=== PATIENT | male | born 1970 | race African-American/Black ===

== ENCOUNTER 2017-04-19 19:33 | Emergency (ER) | payer OTHER ==
[~2017-04-19] VITALS: Ht 170.2 cm; Wt 65.8 kg
[2017-04-19 19:33] VITALS: TEMP 37; Ht 170.2 cm; Wt 65.8 kg
[2017-04-19 19:50] VITALS: O2SAT 97
[2017-04-19] MEDS ORDERED: OPTIRAY 320 IV PRN (20:30)
[2017-04-19 20:35] LABS: HEMATOCRIT 44.7 % (42-52); MEAN CELL VOLUME 93.1 fL (80-100); MEAN CORPUSCULAR HEMOGLOBIN 32.1 pg (25-34); MEAN CORPUSCULAR HGB CONC 34.5 g/dl (32-36); MEAN PLATELET VOLUME 11.3 fL (7.4-10.4); PLATELET COUNT 204 K/uL (130-400); WHITE BLOOD COUNT 9.92 K/uL (4.8-10.8)
--- NOTE | 2017-04-19 20:40 | EMERGENCY ROOM VISIT NOTE ---
History Report prepared by Liz: Momo Douglas Under the Supervision of: Dr. Shaggy Felton M.D. First contact with patient: 20:05 Chief Complaint: MENTAL HEALTH EVALUATION Stated Complaint: HANGING ATTEMPT / [facility] History of Present Illness The patient is a 46 year old male who presents to the Emergency Room via ambulance for a mental health evaluation due to a sudden hanging attempt prior to arrival. The patient states that he tried to hang himself with his bed sheets , and he states that he has tried to do this before, and he came into the hospital for that as well. The patient states that he has been in [facility] for a few months, and he is by himself in his cell. The patient states that he currently has neck pain, and he has a history of asthma. The patient states that he is hearing voices leading to this attempt, and this is not the first time that this has happened. The patient might have lost consciousness for a few seconds and had seizure like activity for a few seconds until the bedsheets were removed. Source of History: patient Onset: prior to arrival Position: other (global) Quality: other (hanging attempt) Timing: other (sudden) Associated Symptoms: + neck pain Review of Systems See HPI for pertinent positives & negatives. A total of 10 systems reviewed and were otherwise negative. Past Medical & Surgical Medical Problems: (1) Asthma Social History Smoking Status: Current Every Day Smoker Housing Status: other (half-way) Occupation Status: other Current/Historical Medications Scheduled Citalopram (Citalopram Hydrobromide), 1 TAB PO DAILY Fluticasone Prop/Salmeterol (Advair Diskus 500/50 60 Dose), 1 PUFF INH BID Mirtazapine (Mirtazapine), 1 TAB PO HS Tiotropium [place] (Spiriva Handihaler), 1 CAP INH DAILY Allergies Coded Allergies: No Known Allergies (Unverified , 04/19/17) Physical Exam Vital Signs Date Time Temp Pulse Resp B/P Pulse Ox O2 Delivery O2 Flow Rate FiO2 04/19/17 22:48 63 18 132/86 98 Room Air 04/19/17 21:31 120/81 04/19/17 21:01 109/70 04/19/17 20:38 66 12 99 04/19/17 20:33 65 16 98 04/19/17 20:31 119/76 04/19/17 20:03 78 18 97 04/19/17 20:01 112/78 04/19/17 19:50 97 Room Air 04/19/17 19:40 60 04/19/17 19:35 125/75 04/19/17 19:33 37.0 78 14 125/75 98 Room Air Physical Exam GENERAL: Patient is in no acute distress. HEENT: No acute trauma, normocephalic atraumatic, mucous membranes moist, no nasal congestion, no scleral icterus. NECK: Stiff collar in place. Trachea is midline. No stridor. LUNGS: Clear to auscultation bilaterally, no wheeze, no rhonchi, breath sounds equal. HEART: Without murmurs gallops or rubs, regular rate and rhythm. ABDOMEN: Soft, nontender, bowel sounds positive, no hernias, no peritonitis. EXTREMITIES: No cyanosis or edema, full range of motion of all the joints without pain or difficulty, no signs for acute trauma. NEUROLOGIC: Oriented x 3, no acute motor or sensory deficits, no focal weakness. SKIN: No rash, no jaundice, no diaphoresis. Medical Decision & Procedures ER Provider Diagnostic Interpretation: Radiology results as stated below per my review and radiologist interpretation: CT OF THE HEAD WITHOUT CONTRAST CLINICAL HISTORY: Attempted hanging, possible head injury. COMPARISON STUDY: No previous studies for comparison. TECHNIQUE: Helical axial images of the head were obtained without IV contrast. Automated exposure control was utilized for the study. FINDINGS: No acute intracranial hemorrhage, midline shift or mass effect is present. Ventricular system is normal. Basilar cisterns are patent. Au-white differentiation is maintained. There is no calvarial fracture. IMPRESSION: 1. No acute intracranial findings. 2. No calvarial fracture. Electronically signed by: Brad Burrows M.D. 04/19/2017 9:33 PM Dictated Date/Time: 04/19/2017 9:[address] OF THE CHEST WITHOUT IV CONTRAST CLINICAL HISTORY: Attempted hanging, neck pain COMPARISON STUDY: No previous studies for comparison. TECHNIQUE: Axial images of the chest were obtained without IV contrast. Images were reviewed in the axial, sagittal, and coronal planes. IV contrast was not administered for this examination. FINDINGS: Evaluation of the thoracic aorta suboptimal on this unenhanced exam. However, there is no mediastinal hematoma. The size of the heart is normal. There is no pericardial effusion. No enlarged thoracic lymph nodes are present. Central airways are patent. There is mild paraseptal emphysema. There is no pneumothorax or pulmonary contusion. Ground glass opacities reflect atelectasis. No acute fracture within the ribs or thoracic spine is identified. Visualized portions the upper abdomen are unremarkable on this unenhanced study. IMPRESSION: 1. No acute traumatic findings within the chest on unenhanced exam. 2. Mild paraseptal emphysema. Electronically signed by: Brad Burrows M.D. 04/19/2017 9:43 PM Dictated Date/Time: 04/19/2017 9:[address] SOFT TISSUE NECK WITH CT DOSE: 1319.46 mGy.cm CLINICAL HISTORY: Attempted hanging. TECHNIQUE: Axial images of the neck were obtained following intravenous injection of 119 cc Optiray 320 IV. COMPARISON STUDY: None. FINDINGS: Major vasculature of the neck is patent. The right vertebral artery is hypoplastic. No hematoma is identified within the neck. There is no acute cervical spine fracture. The chest will be reported separately. IMPRESSION: 1. No acute traumatic findings within the neck. 2. No cervical spine fracture. Electronically signed by: Brad Burrows M.D. 04/19/2017 9:39 PM Dictated Date/Time: 04/19/2017 9:34 PM Laboratory Results 04/19/17 20:21 04/19/17 20:21 Test 04/19/17 20:21 Red Blood Count 4.80 M/uL (4.7-6.1) Mean Corpuscular Volume 93.1 fL (80-100) Mean Corpuscular Hemoglobin 32.1 pg (25-34) Mean Corpuscular Hemoglobin Concent 34.5 g/dl (32-36) RDW Standard Deviation 45.0 fL (36.4-46.3) RDW Coefficient of Variation 13.1 % (11.5-14.5) Mean Platelet Volume 11.3 fL (7.4-10.4) Anion Gap 8.0 mmol/L (3-11) Est Creatinine Clear Calc Drug Dose 71.6 ml/min Estimated GFR () 83.5 Estimated GFR (Non- 72.1 BUN/Creatinine Ratio 8.7 (10-20) Calcium Level 9.0 mg/dl (8.5-10.1) Total Bilirubin 0.9 mg/dl (0.2-1) Aspartate Amino Transf (AST/SGOT) 24 U/L (15-37) Alanine Aminotransferase (ALT/SGPT) 25 U/L (12-78) Alkaline Phosphatase 77 U/L (45-117) Troponin I < 0.015 ng/ml (0-0.045) Total Protein 7.3 gm/dl (6.4-8.2) Albumin 3.8 gm/dl (3.4-5.0) Globulin 3.5 gm/dl (2.5-4.0) Albumin/Globulin Ratio 1.1 (0.9-2) Thyroid Stimulating Hormone (TSH) 0.918 uIu/ml (0.300-4.500) Salicylates Level < 1.7 mg/dl (2.8-20) Acetaminophen Level < 2 ug/ml (10-30) Ethyl Alcohol mg/dL < 3.0 mg/dl (0-3) Laboratory results reviewed by me. ECG Indication: other (hanging attempt) Rate (beats per minute): 60 Rhythm: normal sinus Findings: no acute ischemic change, no ectopy ED Course 2004: The patient was evaluated in room B11. A complete history and physical exam was performed. 2151: I reevaluated the patient, and I told the guards that the patient can go back. 2156: I discussed the patient's case with the nurse at [facility] She states that she is going to take the patient back in their [facility]. Medical Decision The patient is a 46 year old male who presents to the ED with complaints of an attempted hanging. Differential diagnoses considered include cervical fracture , sift tissue injury, tracheal injury, suicidality, infection, electrolyte imbalance, and thyroid disorder. The patient presents after an attempted hanging using his bed sheets. He was in a stiff collar lying on the stretcher. He complained of anterior neck pain. There is no leukocytosis or concerning anemia. No significant electrolyte abnormality, kidney failure or hepatitis. Brain CT shows no acute bleed or mass effect. C-spine CT shows no fracture or significant soft tissue injury. Chest CT does not show mediastinal air, there was no pneumothorax or obvious lung injury. The patient had his stiff collar removed. He could move his neck fairly freely. There was no pain in the back of the neck, just soreness across the anterior soft tissues. The patient is being discharged back to the half-way. He will need to be on suicide watch. I did contact the medical personnel at the half-way. The patient was discharged. Consults Time Called: 2154 Consulting Physician: The nurse at [facility] Returned Call: 2156 I discussed the patient's case with the nurse at [facility] ([facility] She states that she is going to take the patient back in their infirmary. Impression Primary Impression: Suicide attempt by hanging Additional Impression: Anterior neck pain Scribe Attestation The scribe's documentation has been prepared under my direction and personally reviewed by me in its entirety. I confirm that the note above accurately reflects all work, treatment, procedures, and medical decision making performed by me. Departure Information Dispostion Home / Self-Care Referrals [facility] (PCP) Forms HOME CARE DOCUMENTATION FORM, IMPORTANT VISIT INFORMATION Patient Instructions My [facility] Additional Instructions imaging was all ok keep him in the infirmary for close observation suicide precautions Problem Qualifiers
[2017-04-19 20:56] LABS: ALT/SGPT 25 U/L (12-78); BLOOD UREA NITROGEN 10 mg/dl (7-18); BUN/CREATININE RATIO 8.7 (10-20); CARBON DIOXIDE 26 mmol/L (21-32); CHLORIDE 107 mmol/L (98-107); GLUCOSE 75 mg/dl (70-99); POTASSIUM 3.5 mmol/L (3.5-5.1); SODIUM 141 mmol/L (136-145)
[2017-04-19 21:00] LABS: ACETAMINOPHEN < 2 ug/ml (10-30)
[2017-04-19 21:07] LABS: ALB/GLOB RATIO 1.1 (0.9-2); ALKALINE PHOSPHATASE 77 U/L (45-117); AST/SGOT 24 U/L (15-37); THYROID STIMULATING HORMONE 0.918 uIu/ml (0.300-4.500)
--- NOTE | 2017-04-19 21:35 | DIAGNOSTIC IMAGING REPORT ---
CT OF THE HEAD WITHOUT CONTRAST CLINICAL HISTORY: Attempted hanging, possible head injury. COMPARISON STUDY: No previous studies for comparison. TECHNIQUE: Helical axial images of the head were obtained without IV contrast. Automated exposure control was utilized for the study. FINDINGS: No acute intracranial hemorrhage, midline shift or mass effect is present. Ventricular system is normal. Basilar cisterns are patent. Au-white differentiation is maintained. There is no calvarial fracture. IMPRESSION: 1. No acute intracranial findings. 2. No calvarial fracture. Electronically signed by: Brad Burrows M.D. 04/19/2017 9:33 PM Dictated Date/Time: 04/19/2017 9:32 PM
--- NOTE | 2017-04-19 21:40 | DIAGNOSTIC IMAGING REPORT ---
CT SOFT TISSUE NECK WITH CT DOSE: 1319.46 mGy.cm CLINICAL HISTORY: Attempted hanging. TECHNIQUE: Axial images of the neck were obtained following intravenous injection of 119 cc Optiray 320 IV. COMPARISON STUDY: None. FINDINGS: Major vasculature of the neck is patent. The right vertebral artery is hypoplastic. No hematoma is identified within the neck. There is no acute cervical spine fracture. The chest will be reported separately. IMPRESSION: 1. No acute traumatic findings within the neck. 2. No cervical spine fracture. Electronically signed by: Brad Burrows M.D. 04/19/2017 9:39 PM Dictated Date/Time: 04/19/2017 9:34 PM
--- NOTE | 2017-04-19 21:44 | DIAGNOSTIC IMAGING REPORT ---
CT OF THE CHEST WITHOUT IV CONTRAST CLINICAL HISTORY: Attempted hanging, neck pain COMPARISON STUDY: No previous studies for comparison. TECHNIQUE: Axial images of the chest were obtained without IV contrast. Images were reviewed in the axial, sagittal, and coronal planes. IV contrast was not administered for this examination. FINDINGS: Evaluation of the thoracic aorta suboptimal on this unenhanced exam. However, there is no mediastinal hematoma. The size of the heart is normal. There is no pericardial effusion. No enlarged thoracic lymph nodes are present. Central airways are patent. There is mild paraseptal emphysema. There is no pneumothorax or pulmonary contusion. Ground glass opacities reflect atelectasis. No acute fracture within the ribs or thoracic spine is identified. Visualized portions the upper abdomen are unremarkable on this unenhanced study. IMPRESSION: 1. No acute traumatic findings within the chest on unenhanced exam. 2. Mild paraseptal emphysema. Electronically signed by: Brad Burrows M.D. 04/19/2017 9:43 PM Dictated Date/Time: 04/19/2017 9:39 PM
[2017-04-19] MEDS ORDERED: ADVIN50/60 INH (21:47)
[2017-04-19] MEDS ORDERED: CITA40TA4 PO (21:47)
[2017-04-19] MEDS ORDERED: SPRIN/30 INH (21:47)
[2017-04-19] MEDS ORDERED: MIRT45TA3 PO (21:47)
[2017-04-19 22:48] VITALS: BP 132/86; PULSE 63; O2SAT 98
== END 2017-04-19 22:54 | disposition home or self-care (01) ==
LOC: C.EDB 19:35
DX: T71.162A Asphyxiation due to hanging, intentional self-harm, initial encounter (principal); X83.8XXA Intentional self-harm by other specified means, initial encounter; J45.909 Unspecified asthma, uncomplicated; F17.210 Nicotine dependence, cigarettes, uncomplicated; Z79.899 Other long term (current) drug therapy